=== PATIENT | female | born 1975 | race Caucasian/White ===

== ENCOUNTER 2018-07-30 15:10 | Emergency (ER) | payer OTHER ==
[2018-07-30] MEDS: PENICILLIN V POTASSIUM 500 MG TAB PO (15:53)
[2018-07-30] MEDS: NORCO, ANEXSIA 5/325MG TABLET (HYDROcodone/ACETAMINOPHEN) PO (15:53)
== END 2018-07-30 15:56 | disposition home or self-care (01) ==
LOC: M ED 15:10
DX: K04.7 Periapical abscess without sinus (principal); K02.9 Dental caries, unspecified; S02.5XXA Fracture of tooth (traumatic), initial encounter for closed fracture; X58.XXXA Exposure to other specified factors, initial encounter; Y92.89 Other specified places as the place of occurrence of the external cause; Z79.899 Other long term (current) drug therapy
CPT/HCPCS: 99282